=== PATIENT | male | born 1955 | race Caucasian/White ===

== ENCOUNTER 2018-07-10 13:39 | Outpatient (CLI) | payer BC, SELFPAY ==
[2018-07-10 14:19] LABS: Abs Immature Grans 0.01 k/cumm (0.0-0.09); Absolute Basophil Count 0.06 k/cumm (0.0-0.2); Absolute Eosinophil Count 0.23 k/cumm (0.0-0.7); Absolute Lymphocyte Count 1.91 k/cumm (1.2-3.4); Absolute Monocyte Count 0.79 k/cumm (0.11-0.7); Absolute Neutrophil Count 5.86 k/cumm (1.2-6.7); Basophils % 0.7; Eosinophils % 2.6; HCT 44.8 % (40.0-50.0); HGB 15.2 g/dL (13.5-17.5); Immature Grans % 0.1; Lymphocytes % 21.6; Mean Corp. HGB Concentration 33.9 g/dL (32.0-36.0); Mean Corpuscular Hemoglobin 31.3 pg (27.0-33.0); Mean Corpuscular Volume 92.2 fL (80-95); Mean Platelet Volume 9.8 fL (8.0-11.0); Monocytes % 8.9; Neutrophils % 66.1; Platelet Count 257 x1000/uL (130-400); RBC 4.86 m/cumm (4.50-6.00); White Blood Cell Count 8.86 k/cumm (4.4-10.8)
[2018-07-10 15:08] LABS: ESR 5 MM/HR (1-20)
[2018-07-13 11:40] LABS: Lyme Ab w Rflx to Lyme Confirm Negative
== END 2018-07-10 13:59 ==
PROVIDERS: PCP Specialist/Technologist Athletic Trainer; Visit Provider Chiropractor Orthopedic
DX: M25.50 Pain in unspecified joint (principal)
CPT/HCPCS: 36415; 85652; 85025; 86618

== ENCOUNTER → 2023-07-28 21:19 | Outpatient (CLI) | payer MEDICARE, SELFPAY ==
--- NOTE | 2023-07-28 | DI.RAD_ITS ---
Exam(s) XR KNEE RT 3V AP,LAT,SILVIA EXAM: XR KNEE RT 3V AP,LAT,SILVIA CLINICAL HISTORY: M25.561 rt knee pain. TECHNIQUE: 2D digital imaging was performed. COMPARISON: No exams were available for comparison FINDINGS: 3 views There is no evidence of acute fracture nor prominent joint effusion. There is significant degenerati ve narrowing of the medial compartment of the knee. Lateral compartment exhibits normal height. Mil d degenerative changes in the patellofemoral compartment. No osseous lesions. No osteochondral defe cts noted. IMPRESSION: No fractures. Degenerative narrowing of the medial compartment noted. No prominent joint effusion. DATA REPOSITORY: RADIATION DOSE DELIVERED:
== END ==
PROVIDERS: PCP Specialist/Technologist Athletic Trainer; Visit Provider Nurse Practitioner Family
DX: M25.561 Pain in right knee (principal)
CPT/HCPCS: 73562

== ENCOUNTER → 2023-08-18 07:55 | Outpatient (BNVA) | payer MEDICARE, SELFPAY | PROVIDERS: PCP Nurse Practitioner Family; Referring Provider Specialist/Technologist Athletic Trainer | DX: M17.11 Unilateral primary osteoarthritis, right knee (principal); M23.91 Unspecified internal derangement of right knee | CPT/HCPCS: 20610; 99203; J1040 ==